=== PATIENT | female | born 1995 | race Two or more races ===

== ENCOUNTER 2020-10-26 12:10 | Emergency (ER) | payer SELFPAY ==
[~2020-10-26] VITALS: Ht 149.9 cm; Wt 60.0 kg
[2020-10-26 12:39] LABS: CLARITY,URINE SLIGHTLY CLOUDY (Clear); COLOR,URINE YELLOW (Yellow); GLUCOSE, URINE NEGATIVE (Neg); KETONES,URINE NEGATIVE (Neg); LEUKOCYTE ESTERASE ,URINE SMALL (Neg); NITRITES, URINE NEGATIVE (Neg); OCCULT BLOOD,URINE MODERATE (Neg); PROTEIN,URINE NEGATIVE (Neg); URINE HCG NEGATIVE (NEG); UROBILINOGEN,URINE 0.2 E.U/dL (0.2-1.0)
[2020-10-26 12:43] LABS: UA COLLECTION TYPE CLN CATCH MIDSTREAM
[2020-10-26 12:44] LABS: WBC,URINE 30-50 /HPF (0-4)
[2020-10-26 12:45] LABS: BACTERIA,URINE 1+ /HPF (Neg); MUCUS STRANDS NONE SEEN /LPF (Neg); SQUAMOUS EPITHELIAL CELL,UR MODERATE /LPF (FEW)
[2020-10-26 12:54] VITALS: BP 123/78
[2020-10-26] MEDS ORDERED: SULF1TAB49 PO (13:13)
--- NOTE | 2020-10-29 09:30 | NUR ---
UNABLE TO CONTACT PT VIA PHONE TO INFORM HER OF THE NEED TO CHANGE ABX TO KEFLEX 500 MG PO BID X7 DAYS. PER ORDER OF DR. DELGADO. LETTER SENT TO ADDRESS ON FILE.
== END 2020-10-26 13:27 | disposition home or self-care (01) ==
LOC: ER 12:11
DX: N39.0 Urinary tract infection, site not specified (principal); Z79.899 Other long term (current) drug therapy
CPT/HCPCS: 81001; 81025; 87077; 87088; 87186; 99283